=== PATIENT | female | born 1980 | race Caucasian/White ===

== ENCOUNTER 2016-06-12 19:44 | Emergency (ER) | payer OTHER ==
[2016-06-12 19:56] VITALS: RESP 20
[2016-06-12] MEDS ORDERED: SODIUM CHLORIDE 0.9% 1000ML 1,000 ML IV ONE ×2 (20:08→21:29)
[2016-06-12] MEDS ORDERED: ONDANSETRON HCL 4 MG/2 ML SOL IV PRN (20:08)
[2016-06-12] MEDS ORDERED: HYDROMORPHONE HCL 2 MG/ML SOL IV ONE (20:09)
[2016-06-12] MEDS ORDERED: HYDROMORPHONE HCL 2 MG/ML SOL ONE (20:22)
[2016-06-12] MEDS ORDERED: ONDANSETRON HCL 4 MG/2 ML SOL ONE (20:22)
[2016-06-12] MEDS ORDERED: SODIUM CHLORIDE 0.9% FLUSH 10 ML SOL IV PRN (20:33)
[2016-06-12 21:31] VITALS: BP 100/50; PULSE 53; TEMP 97.1; O2SAT 92
== END 2016-06-12 23:07 | disposition home or self-care (01) | DRG 641 ==
LOC: ED 19:44
DX: E86.0 Dehydration (principal)
CPT/HCPCS: 96365; 96366; 96374; 96375; 99284; 99285; J1170; J2405